=== PATIENT | male | born 1955 | race Caucasian/White ===

== ENCOUNTER 2016-09-16 08:38 | Emergency (ER) | payer OTHER | END 2016-09-16 08:45 | disposition left against medical advice (07) | LOC: CED 08:38 | DX: Z53.21 Procedure and treatment not carried out due to patient leaving prior to being seen by health care provider (principal) ==

== ENCOUNTER → 2016-09-16 | Outpatient (CLI) | payer OTHER | LOC: CIMAGING 10:06 | PROVIDERS: ATTEND Physical Medicine & Rehabilitation | DX: M79.662 Pain in left lower leg (principal) | CPT/HCPCS: 73590-PO ==

== ENCOUNTER 2016-09-24 09:50 | Emergency (ER) | payer OTHER ==
--- NOTE | 2016-09-24 10:13 | EDPHY ---
H & P Time Seen by Provider: 09/24/16 10:05 HPI/ROS: CHIEF COMPLAINT: Bilateral leg swelling HISTORY OF PRESENT ILLNESS: The patient is a 61-year-old man who comes to the emergency department the requesting ultrasound to rule out DVT. 9 days ago he was caring a prefabricated wooden wall weighing approximately 400 lb and tripped backwards. The wall hit him in the left bhatt. He had a large hematoma at that time. He had x-rays that were performed and were negative. He followed up with his worker's comp physician today and complained about swelling in both legs. She sent him here for ultrasound to rule out DVT. He also complains of continued pain in his right arm and a headache which she has ordered outpatient x-rays for. REVIEW OF SYSTEMS: Constitutional: denies: chills, fever, recent illness, recent injury EENTM: denies: blurred vision, double vision, nose congestion Respiratory: denies: cough, shortness of breath Cardiac: denies: chest pain, irregular heart rate, lightheadedness, palpitations Gastrointestinal/Abdominal: denies: abdominal pain, diarrhea, nausea, vomiting, blood streaked stools Genitourinary: denies: dysuria, frequency, hematuria, pain Musculoskeletal: See HPI Skin: See HPI Neurological: denies: headache, numbness, paresthesia, tingling, dizziness, weakness Hematologic/Lymphatic: denies: blood clots, easy bleeding, easy bruising Immunologic/allergic: denies: HIV/AIDS, transplant EXAM: GENERAL: Well-appearing, well-nourished and in no acute distress. HEAD: Atraumatic, normocephalic. EYES: Pupils equal round and reactive to light, extraocular movements intact, sclera anicteric, conjunctiva are normal. ENT: TMs normal, nares patent, oropharynx clear without exudates. Moist mucous membranes. NECK: Normal range of motion, supple without lymphadenopathy or JVD. LUNGS: Breath sounds clear to auscultation bilaterally and equal. No wheezes rales or rhonchi. HEART: Regular rate and rhythm without murmurs, rubs or gallops. ABDOMEN: Soft, nontender, normoactive bowel sounds. No guarding, no rebound. No masses appreciated. BACK: No CVA tenderness, no spinal tenderness, step-offs or deformities EXTREMITIES: minimal bruising to left bhatt patient states is improving. Minimal swelling and bruising to left ankle likely gravitational blood. Ambulatory without moderate pain . Normal range of motion, no pitting or edema. No clubbing or cyanosis. NEUROLOGICAL: Cranial nerves II through XII grossly intact. Normal speech, normal gait. 5/5 strength, normal movement in all extremities, normal sensation PSYCH: Normal mood, normal affect. SKIN: Warm, dry, normal turgor, no visible rashes or lesions. Source: Patient Exam Limitations: No limitations - Personal History Current Tetanus/Diphtheria Vaccine: Yes - Medical/Surgical History Hx Asthma: No Hx Chronic Respiratory Disease: No Hx Diabetes: No Hx Cardiac Disease: No Hx Renal Disease: No Hx Cirrhosis: No Hx Alcoholism: No Hx HIV/AIDS: No - Family History Significant Family History: No pertinent family hx - Social History Smoking Status: Never smoked Alcohol Use: Sober Drug Use: None Constitutional: Initial Vital Signs Temperature (C) 37 C 09/24/16 10:05 Heart Rate 64 09/24/16 10:05 Respiratory Rate 20 09/24/16 10:05 Blood Pressure 153/95 H 09/24/16 10:05 O2 Sat (%) 95 09/24/16 10:05 O2 Delivery Mode Room Air Allergies/Adverse Reactions: codeine Allergy (Verified 09/24/16 10:12) Home Medications: Medication Instructions Recorded Amlodipine Besylate 09/24/16 Atorvastatin Calcium 09/24/16 Benazepril HCl 09/24/16 GABAPENTIN 09/24/16 Hydrochlorothiazide 09/24/16 Meloxicam 09/24/16 Metoprolol Succinate 09/24/16 Medical Decision Making - Diagnostics Imaging Results: Imaging Impressions Extremity Venous Study 09/24/16 10:10 IMPRESSION: 1. No DVT or superficial thrombophlebitis. 2. Probable small hematoma at the left medial bhatt area. Findings and recommendations discussed with LISA DON at 11:29 AM hour, . Final report concurs with initial preliminary interpretation. Imaging: Discussed imaging studies w/ white hat hacker Radiologist ED Course/Re-evaluation: 11:35 a.m. the patient is relieved by his ultrasound results. He declines further workup or testing at this time. He does have some outpatient x-rays done through Dr. oV office. I did take a look at those and see nothing remarkable but official reading will be done and communicated with Dr. Vo. The patient is ambulatory and feels well and is eager to go home. His is here with him. Differential Diagnosis: Partial list of the Differential diagnosis considered include but were not limited to; contusion, DVT, headaches and although unlikely based on the history and physical exam, I also considered fracture, dislocation, infection. I discussed these differential diagnoses and the plan with the patient as well as the usual and expected course. The patient understands that the diagnosis is provisional and that in medicine we are not always correct and that further workup is often warranted. Usual and customary warnings were given. All of the patient's questions were answered. The patient was instructed to return to the emergency department should the symptoms at all worsen or return, otherwise to followup with the physician as we discussed. Departure - Departure Disposition: Home, Routine, Self-Care Clinical Impression: Bruising Condition: Fair Instructions: Hematoma (ED) Referrals: Denis Dillon MD [Primary Care Provider] - As per Instructions Yolanda Vo MD [Medical Doctor] - As per Instructions
[2016-09-24 11:47] VITALS: BP 125/86; PULSE 56; RESP 16; TEMP 97.9; O2SAT 96
== END 2016-09-24 11:45 | disposition home or self-care (01) ==
LOC: CED 09:50
DX: S80.12XA Contusion of left lower leg, initial encounter (principal); S90.02XA Contusion of left ankle, initial encounter; W22.8XXA Striking against or struck by other objects, initial encounter
CPT/HCPCS: 93970-PO

== ENCOUNTER → 2016-09-24 | Outpatient (CLI) | payer OTHER | LOC: CIMAGING 09:52 | PROVIDERS: ATTEND Physical Medicine & Rehabilitation | DX: M50.30 Other cervical disc degeneration, unspecified cervical region (principal); M25.572 Pain in left ankle and joints of left foot; M25.561 Pain in right knee; M17.11 Unilateral primary osteoarthritis, right knee | CPT/HCPCS: 72052-PO; 73562-PO; 73610-PO ==